=== PATIENT | male | born 1995 | race African-American/Black ===

== ENCOUNTER 2021-03-16 23:11 | Emergency (ER) | payer SELFPAY | END 2021-03-17 00:44 | disposition home or self-care (01) | LOC: CSHERS 23:11 | DX: R10.9 Unspecified abdominal pain (principal); F17.290 Nicotine dependence, other tobacco product, uncomplicated; Z86.16 Personal history of COVID-19 | CPT/HCPCS: 74022 ==

== ENCOUNTER 2022-12-10 15:10 | Outpatient (CLI) | payer OTHER | END 2022-12-10 15:11 | disposition home or self-care (01) | LOC: CSHMRI 15:10 | PROVIDERS: ATTEND Family Medicine | DX: S69.92XA Unspecified injury of left wrist, hand and finger(s), initial encounter (principal) ==

== ENCOUNTER 2025-07-24 21:23 | Emergency (ER) | payer SELFPAY ==
[2025-07-25 00:31] LABS: #Basophils 0.05 10x3/uL (0.0-0.2); #Eosinophils 0.25 10x3/uL (0.0-0.5); #Monocytes 0.54 10x3/uL (0.0-1.1); #Neutrophils 3.80 10x3/uL (1.5-8.4); %Basophils 0.6 % (0.0-2.0); %Eosinophils 3.1 % (0.0-6.0); %Lymphocytes 42.0 % (18.0-47.0); %Monocytes 6.7 % (0.0-10.0); %Neutrophils 47.4 % (40.0-75.0); Hematocrit 41.2 % (38.8-50.0); Hemoglobin 13.9 g/dL (13.5-17.5); Mean Corpuscular Hemoglobin 29.0 pg (27.0-33.0); Mean Corpuscular Volume 86.0 fL (81.2-95.1); Platelet Count 226 10x3/uL (150-450); Red Blood Cell (RBC) Count 4.79 10x6/uL (4.32-5.72); White Blood Cell (WBC) Count 8.03 10x3/uL (3.5-10.5)
[2025-07-25 00:49] LABS: ALT (SGPT) 28 U/L (Less than 45); AST (SGOT) 31 U/L (11-34); Albumin 3.7 g/dL (3.1-4.5); Alkaline Phosphatase 42 U/L (40-110); Anion Gap 12 mmol/L (10-20); BUN (Urea Nitrogen) 13 mg/dL (8.9-20.6); Bilirubin, Total 0.4 mg/dL (0.3-1.2); Calc. Creatinine Clearance 0 mL/min (70-130); Calcium 8.4 mg/dL (7.8-10.44); Carbon Dioxide 20 mmol/L (22-29); Chloride 113 mmol/L (98-107); Globulin 2.4 g/dL (2.4-3.5); Glucose 115 mg/dL (70-105); Potassium 3.5 mmol/L (3.5-5.1); Sodium 141 mmol/L (136-145)
== END 2025-07-25 01:10 | disposition home or self-care (01) ==
LOC: CSHERS 21:23
DX: E86.0 Dehydration (principal); F17.290 Nicotine dependence, other tobacco product, uncomplicated
CPT/HCPCS: 36415; 80053; 85025; 87426; 93005; 99283